=== PATIENT | male | born 1990 | race African-American/Black ===

== ENCOUNTER 2022-10-09 10:54 | Emergency (ER) | payer SELFPAY ==
[2022-10-09 11:08] VITALS: RESP 16; TEMP 99; BMI 26.9
[2022-10-09] MEDS ORDERED: PANTOPRAZOLE SODIUM 40 MG VIAL IVPUSH ONE (11:23)
[2022-10-09] MEDS ORDERED: ACETAMINOPHEN 1000 MG/100 ML BAG IVPB ONE (11:23)
[2022-10-09] MEDS ORDERED: SODIUM CHLORIDE 0.9% 1000 ML INFUS.BAG IV ONE (11:23)
[2022-10-09] MEDS ORDERED: ONDANSETRON 4 MG/2 ML VIAL IVPUSH ONE (11:23)
[2022-10-09] MEDS ORDERED: PANTOPRAZOLE SODIUM 40 MG VIAL ONE (11:43)
[2022-10-09] MEDS ORDERED: ONDANSETRON 4 MG/2 ML VIAL ONE (11:43)
[2022-10-09] MEDS ORDERED: ACETAMINOPHEN INJECTION 100 ML IVPB ONE (11:44)
[2022-10-09 12:04] LABS: INR 1.07 (0.83-1.09); PROTHROMBIN TIME (PATIENT) 12.3 SEC (9.7-13.0)
[2022-10-09 12:07] LABS: ACTIVATED PTT 25.7 SECONDS (25.2-36.5)
[2022-10-09 12:12] LABS: HEMATOCRIT 44.3 % (35.4-49); HEMOGLOBIN 14.6 G/dL (11.7-16.9); MCH 30.8 pg (25.7-33.7); MCHC 32.9 g/dl (32.0-35.9); MEAN CELL VOLUME 93.8 fl (80-96); MEAN PLT VOLUME 8.3 fl (7.5-11.1); PLATELET COUNT 297.4 10^3/uL (134-434); RBC 4.72 10^6/uL (4.00-5.60); RDW 13.4 % (11.9-15.9)
[2022-10-09 12:18] LABS: PLATELET ESTIMATE ADEQUATE
[2022-10-09 12:20] LABS: ALBUMIN 4.4 g/dl (3.4-5.0); BILIRUBIN,TOTAL 1.1 mg/dl (0.2-1); CALCIUM 9.7 mg/dl (8.5-10); TOT PROT 7.8 g/dl (6.4-8.2)
[2022-10-09 15:14] VITALS: BP 137/80; PULSE 70
== END 2022-10-09 15:20 | disposition home or self-care (01) ==
LOC: FER 10:54
PROC: 3E033GC Introduction of Other Therapeutic Substance into Peripheral Vein, Percutaneous Approach (ICD-10-PCS; principal; 2022-10-09)
DX: K52.9 Noninfective gastroenteritis and colitis, unspecified (principal)
CPT/HCPCS: 36415; 74177-TC; 76705-TC; 80053; 81003; 82272; 83690; 85027; 85610; 85730; 86850; 86900; 86901; 99285-25; Q9967

== ENCOUNTER 2022-10-21 21:27 | Emergency (ER) | payer SELFPAY ==
[2022-10-21 21:36] VITALS: BP 152/92; PULSE 78; RESP 18; TEMP 99; BMI 26.9
== END 2022-10-21 22:07 | disposition home or self-care (01) ==
LOC: FER 21:27
DX: K62.5 Hemorrhage of anus and rectum (principal); K64.4 Residual hemorrhoidal skin tags
CPT/HCPCS: 36415; 81003; 82272; 99285-25